=== PATIENT | female | born 1975 | race African-American/Black ===

== ENCOUNTER 2020-01-29 12:40 | Emergency (ER) | payer OTHER ==
[~2020-01-29] VITALS: Ht 162.6 cm; Wt 64.0 kg
[~2020-01-29 12:40] MED LIST: BUSPIRONE HCL10 MG PO; GABAPENTIN100 MG PO; LEXAPRO 10 MG T10 M2 PO; MIRTAZAPINE7.5 MG PO; TRAZODONE HCL50 MG PO
[2020-01-29 13:35] LABS: ABSOLUTE NEUTROPHILS 1.3 thou/uL (1.4-8.2); BASOPHILS 0.8 % (0.0-2.0); EOSINOPHILS 2.6 % (0.0-3.0); HEMATOCRIT 31.6 % (37.0-47.0); HEMOGLOBIN 10.1 gm/dL (12.0-15.0); LYMPHOCYTES 47.4 % (24.0-44.0); MCH 25.5 pg (26.0-34.0); MCHC 31.9 g/dL (28.0-37.0); MCV 79.9 fL (80.0-100.0); MONOCYTES 10.5 % (1.0-8.0); PLATELET COUNT 492 thou/uL (150-400); POLYS 38.7 % (36.0-66.0); RBC 3.96 mil/uL (4.20-5.00); RDW 16.6 % (10.5-14.5); WBC 3.5 thou/uL (4.0-11.0)
[2020-01-29 13:40] LABS: ANION GAP 12 mmol/L (7-16); BUN 4 mg/dL (7-18); CALCIUM 9.2 mg/dL (8.5-10.1); CHLORIDE 102 mmol/L (98-107); CO2 26 mmol/L (21-32); CREATININE 0.9 mg/dL (0.6-1.0); GLUCOSE 112 mg/dL (74-106); POTASSIUM 3.1 mmol/L (3.5-5.1); SODIUM 140 mmol/L (136-145)
[2020-01-29 13:48] LABS: URINE BILIRUBIN NEGATIVE (Negative); URINE BLOOD NEGATIVE (Negative); URINE CLARITY CLEAR; URINE COLOR YELLOW; URINE GLUCOSE-RANDOM* NEGATIVE (Negative); URINE KETONES NEGATIVE (Negative); URINE LEUKOCYTES-REFLEX NEGATIVE (Negative); URINE NITRITE-REFLEX NEGATIVE (Negative); URINE PROTEIN (DIPSTICK) NEGATIVE (Negative); URINE SPECIFIC GRAVITY <= 1.005 (1.005-1.035); URINE UROBILINOGEN 0.2 E.U./dl (0.2-1.0)
[2020-01-29 13:57] LABS: MAGNESIUM 1.8 mg/dL (1.8-2.4); SGOT 16 U/L (15-37); SGPT 17 U/L (30-65); TOTAL BILIRUBIN 0.2 mg/dL (0.2-1.0); TOTAL PROTEIN 7.9 g/dL (6.4-8.2); TROPONIN-I <0.06 ng/mL (<0.06)
[2020-01-29 14:00] LABS: AMP/METHAMP Negative (Negative); BARBITURATES Negative (Negative); BENZODIAZEPINES Negative (Negative); COCAINE Negative (Negative); METHADONE Negative (Negative); OPIATES Negative (Negative); PCP Negative (Negative)
[2020-01-29 14:10] LABS: SALICYLATE < 2.8 mg/dL (2.8-20.0)
[2020-01-29] MEDS ORDERED: HYDROXYZINE PAM25 M1 PO (14:17)
[2020-01-29] MEDS ORDERED: NEURONTIN100 MG PO (14:18)
[2020-01-29] MEDS ORDERED: PROAIR HFA8.5 GM INH (14:19)
[2020-01-29] MEDS ORDERED: NAPROXEN375 MG PO (17:45)
[2020-01-29] MEDS ORDERED: ONDANSETRON ODT4 MG PO (17:45)
[2020-01-29 18:06] VITALS: BP 138/90
--- NOTE | 2020-01-30 07:31 | EKG ---
[facility] [place] [address] ELECTROCARDIOGRAM REPORT Name: SAIGE LEVINE Room #: [facility]#: [id number] Admission: 01/29/20 Attend Phys: Discharge: 01/29/20 Date of : 73 Report #: [id number] THIS REPORT FOR: cc: Jenna Fuentes Christine L. DO Lundgren, Craig H. 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: [facility] : 1975 Requested By: Renato Wilkes Order Number: [id number] MD: Tashi Montano Measurements Intervals [place] Rate: 134 P: 64 [place]: 81 QRS: 80 QRSD: 93 T: 52 QT: 423 QTc: 632 Interpretive Statements Sinus tachycardia Nonspecific ST and T wave abnormality Prolonged QT interval No previous ECG available for comparison Electronically Signed On 01-30-2020 7:31:24 CDT by Tashi Montano [email or web address] <ELECTRONICALLY SIGNED> By: Tashi Montano MD, [facility] 01/30/20 0731 1253 [id number] Tashi Montano MD, [facility] /EPI
== END 2020-01-29 18:07 | disposition home or self-care (01) ==
LOC: ER 12:40
PROVIDERS: Emergency Medicine
DX: R53.1 Weakness (principal); E87.6 Hypokalemia; F41.0 Panic disorder [episodic paroxysmal anxiety]; I49.5 Sick sinus syndrome; R25.1 Tremor, unspecified; F43.21 Adjustment disorder with depressed mood; Z79.899 Other long term (current) drug therapy